=== PATIENT | female | born 1995 | race Caucasian/White ===

== ENCOUNTER → 2020-09-08 09:23 | Outpatient (CLI) | payer OTHER, SELFPAY ==
--- NOTE | 2020-09-08 | DI.MRI.S_ITS ---
PROCEDURE: MR ANKLE RT WO CON INDICATIONS: Pain in right foot TECHNIQUE: Noncontrast sagittal T1 spin echo and T2 fast spin echo with fat saturation, axial proton density fast spin echo and T2 fast spin echo with fat saturation, coronal T1 spin echo and T2 fast spin echo with fat saturation through the ankle/hindfoot. COMPARISON: [facility], CR, XR FOOT 3 VIEWS WEIGHT BEARING BILATERAL, 09/02/2020, 13:46. FINDINGS: Image quality: Excellent. Bones and joints: Os navicularis is seen with marrow edema and pseudoarthrosis involving articulation between os navicularis and medial periphery of navicular bone. No other area of abnormal marrow signal. No fracture or dislocation. No hindfoot coalitions. No osteochondral injuries of the talar dome. No pathologic joint effusions. Medial structures: The posterior tibialis is mildly thickened at the level of os navicularis. The flexor digitorum longus, and flexor hallucis longus tendons are intact. Small to moderate amount of fluid is seen distending flexor tendon sheath most prominent in flexor hallucis longus tendon suggestive of tenosynovitis. The posterior tibial neurovascular bundle appears normal within the tarsal tunnel, without extrinsic mass effect. The deep layer (anterior and posterior tibiotalar ligaments) and superficial layer (tibionavicular, tibiospring, and tibiocalcaneal ligaments) of the deltoid ligament appear normal. The spring ligament components (superomedial calcaneonavicular, medioplantar oblique calcaneonavicular, and inferoplantar longitudinal ligaments) are intact. Lateral structures: The anterior talofibular, calcaneofibular, and posterior talofibular ligaments appear intact. More superiorly, the anterior and posterior tibiofibular ligaments appear intact, as is the intermalleolar ligament. The tibiofibular syndesmosis is normal in width at 2 mm or less. The peroneus longus and brevis tendons demonstrate normal location and morphology. Adjacent bony peroneal tubercle and retrotrochlear prominence are normal in size. The sinus tarsi demonstrates normal fatty signal, without edema, fibrosis, or cyst formation. Visualized sinus tarsi components (cervical ligament, interosseous talocalcaneal ligament, roots of the inferior extensor retinaculum) appear normal. The calcaneonavicular and calcaneocuboid components of the bifurcate ligament appear intact. The dorsal calcaneocuboid ligament appears intact. Anterior structures: The tibialis anterior, extensor hallucis longus, and extensor digitorum longus tendons appear intact. The dorsal talonavicular ligament appears intact. Posterior and plantar structures: Achilles tendon is intact. Medial and lateral bands of the plantar fascia are of normal thickness. No abductor digiti quinti muscle atrophy to suggest Hernandez neuropathy. IMPRESSION: 1. Prominent size os navicularis with pseudoarthrosis with adjacent medial aspect of navicular bone and marrow edema within the os navicularis and medial periphery of navicular. No fracture or dislocation. No other area of abnormal marrow signal. 2. Mild tendinosis involving posterior tibialis tendon at the level of os navicularis. Low-grade flexor tendon tenosynovitis. 3. Rest of the ankle tendons and ligaments are intact. Dictated by: Bart Ferraro M.D. on 09/08/2020 at 11:14 Approved by: Bart Ferraro M.D. on 09/08/2020 at 11:39
== END ==
PROVIDERS: Referring Provider Podiatrist; Visit Provider Podiatrist
DX: M79.671 Pain in right foot (principal); M65.871 Other synovitis and tenosynovitis, right ankle and foot
CPT/HCPCS: 73721

== ENCOUNTER 2022-10-17 20:15 | Emergency (ER) | payer OTHER, SELFPAY ==
[2022-10-17 20:40] VITALS: BP 123/88; PULSE 71; RESP 18; TEMP 36.8; O2SAT 100; BMI 30.9
--- NOTE | 2022-10-17 20:46 | DI.RAD.S_ITS ---
PROCEDURE: XR CHEST 1V INDICATIONS: chest pain TECHNIQUE: One view of the chest was acquired. COMPARISON: None. FINDINGS: Surgical changes and devices: None. Lungs and pleura: Lungs are clear. No pleural effusions or pneumothorax. Mediastinum: Mediastinal contours appear normal. Heart size is normal. Bones and chest wall: No suspicious bony lesions. Overlying soft tissues appear unremarkable. IMPRESSION: 1. No acute cardiopulmonary disease. Dictated by: Lisandro Caicedo M.D. on 10/17/2022 at 21:54 Approved by: Lisandro Caicedo M.D. on 10/17/2022 at 21:54
[2022-10-17 21:27] LABS: Add Manual Diff / Slide Review NO; Basophils Absolute Auto 100 /uL (0-100); Basophils Percent Auto 0.4 % (0-2); Eosinophils Absolute Auto 100 /uL (0-450); Eosinophils Percent Auto 0.5 % (2-4); Hematocrit 42.6 % (36-46); Hemoglobin 14.2 g/dL (12.0-16.0); Lymphocytes Absolute Auto 3400 /uL (1100-4500); Lymphocytes Percent Auto 25.2 % (25-40); Mean Corpuscular HGB Conc 33.4 % (30-36); Mean Corpuscular Hemoglobin 31.1 PG (26-34); Monocytes Absolute Auto 1000 /uL (0-900); Monocytes Percent Auto 7.2 % (3-14); Neutrophils Absolute Auto 8900 /uL (1500-7000); Neutrophils Percent Auto 66.7 % (50-75); PTT Partial Thromboplastin Tim 26 SECONDS (26-36); Platelet Count 264 X10^3/uL (150-400); Red Blood Cell Count 4.58 X10^6/uL (4.0-5.2); Red Cell Distribution Width 12.9 % (11.6-14.8); White Blood Cell Count 13.3 X10^3/uL (4.5-11.0)
[2022-10-17 21:34] LABS: Alanine Aminotransferase 16 IU/L (<35); Albumin 4.3 g/dL (3.5-5.0); Albumin Globulin Ratio 1.3 (1.0-2.8); Alkaline Phosphatase 43 U/L (38-126); Aspartate Aminotransferase 23 IU/L (14-36); BUN Creatinine Ratio 33.8 (6-22); Bilirubin Total 0.6 mg/dL (0.2-1.3); Blood Urea Nitrogen 23 mg/dL (7-17); Calcium 8.9 mg/dL (8.4-10.2); Carbon Dioxide 24 mmol/L (22-32); Chloride 103 mmol/L (98-107); Creatine Kinase 95 U/L (30-135); Estimated Glomerular Filt Rate > 60 mL/min (>60); Globulin 3.4 g/dL (1.7-4.1); Glucose 83 mg/dL (70-100); HEMOLYSIS 31 (0-50); Lipase 83 U/L (23-300); Magnesium 1.9 mg/dL (1.6-2.3); Sodium 136 mmol/L (137-145); Total Protein 7.7 g/dL (6.3-8.2)
[2022-10-17 21:45] LABS: Troponin I < 0.012 ng/mL (0.01-0.034)
[2022-10-17 22:27] LABS: COVID19 -Nasal RAPID Negative (Negative)
[2022-10-17 22:44] VITALS: BP 117/57; PULSE 67; O2SAT 100
[2022-10-17 23:00] VITALS: PULSE 64; O2SAT 100
[2022-10-17 23:01] VITALS: BP 108/54; PULSE 66; O2SAT 100
--- NOTE | 2022-10-17 23:11 | ED.CHESTPAIN ---
HPI - Chest Pain General Chief Complaint: Chest Pain Stated Complaint: chest pain Time Seen by Provider: 10/17/22 22:54 Source: patient Mode of arrival: Ambulatory Limitations: no limitations History of Present Illness HPI narrative: Patient is a 27-year-old otherwise healthy female who is here for evaluation of occasional episodes of retrosternal sharp chest pain that has been going on for the past couple days. She states when it comes on it lasts for short period of time resolves over this happening multiple times a day. No shortness of breath. Not worse with palpation or movement. No abdominal pain. No nausea or vomiting. Has not tried anything for the symptoms prior to arrival. Related Data Allergies Allergy/AdvReac Type Severity Reaction Status Date / Time No Known Drug Allergies Allergy Verified 10/17/22 20:40 Review of Systems Constitutional Constitutional: Reports system reviewed and no additional complaints, except as documented Cardiovascular Cardiovascular: Reports system reviewed and no additional complaints, except as documented Respiratory Respiratory: Reports system reviewed and no additional complaints, except as documented Gastrointestinal Gastrointestinal: Reports system reviewed and no additional complaints, except as documented Musculoskeletal Musculoskeletal: Reports system reviewed and no additional complaints, except as documented Hematologic/Lymphatic On Anticoagulants: No Patient History Social History Smoking Status: Former smoker Smoking Status: Former smoker alcohol intake frequency: a few times a month Substance Use Type: does not use Exam Initial Vital Signs Initial Vital Signs: Vital Signs Temperature 98.3 F 10/17/22 20:40 Pulse Rate 71 10/17/22 20:40 Respiratory Rate 18 10/17/22 20:40 Blood Pressure 123/88 10/17/22 20:40 Pulse Oximetry 100 10/17/22 20:40 Oxygen Delivery Method Room Air 10/17/22 20:40 HENMT Head: normal to inspection and normocephalic Chest Chest: No crepitus and No tenderness Resp Effort & Inspection: normal respiratory effort Auscultation: clear to auscultation bilaterally Cardio Rate: regular rate Rhythm: regular rhythm GI Inspection: normal to inspection Neuro General: patient alert, patient awake and moves all extremities Scores HEART Score Heart Score history: Slightly Suspicious Heart Score EKG: Normal Heart Score Age: < 45 years old Heart Score risk factors: No known risk factors Heart Score troponin: < or = to normal limit Heart Score Total: 0 Course Orders Ordered: ED Orders 10/17/22 20:46 XR chest 1V Stat EKG-12 Lead Stat 10/17/22 20:48 COVID19 -Nasal RAPID Stat 10/17/22 21:10 Complete Blood Count AUTO DIFF Stat Comprehensive Metabolic Panel Stat Lipase Stat Magnesium Stat PTT Partial Thromboplastin Osmani Stat Prothrombin Time INR Stat Troponin & CK Cardiac Panel Stat Vital Signs Vital signs: Vital Signs - 8 hr 10/17/22 20:40 10/17/22 22:44 10/17/22 22:44 Temperature 98.3 F Pulse Rate 71 67 Respiratory Rate 18 Blood Pressure 123/88 117/57 L Pulse Oximetry 100 100 Oxygen Delivery Method Room Air 10/17/22 23:00 10/17/22 23:01 10/17/22 23:01 Temperature Pulse Rate 64 66 Respiratory Rate Blood Pressure 108/54 L Pulse Oximetry 100 100 Oxygen Delivery Method 10/17/22 23:16 10/17/22 23:16 Temperature Pulse Rate Respiratory Rate Blood Pressure 109/55 L Pulse Oximetry 83 L Oxygen Delivery Method MDM - Chest Pain Lab Data Attestation: I reviewed the patient's lab results. 10/17/22 21:10 10/17/22 21:10 Labs: Lab Results 10/17/22 10/17/22 10/17/22 Range/Units 20:48 21:10 21:10 WBC 13.3 H (4.5-11.0) X10^3/uL RBC 4.58 (4.0-5.2) X10^6/uL Hgb 14.2 (12.0-16.0) g/dL Hct 42.6 (36-46) % MCV 93.0 (80-100) fL MCH 31.1 (26-34) PG MCHC 33.4 (30-36) % RDW 12.9 (11.6-14.8) % Plt Count 264 (150-400) X10^3/uL Neut % (Auto) 66.7 (50-75) % Lymph % (Auto) 25.2 (25-40) % Centre % (Auto) 7.2 (3-14) % Eos % (Auto) 0.5 L (2-4) % Baso % (Auto) 0.4 (0-2) % Neut # (Auto) 8900 H (1089-1047) /uL Lymph # (Auto) 3400 (0855-0547) /uL Centre # (Auto) 1000 H (0-900) /uL Eos # (Auto) 100 (0-450) /uL Baso # (Auto) 100 (0-100) /uL PT 12.0 (10.1-12.7) SECONDS INR 1.0 (0.9-1.3) APTT 26 (26-36) SECONDS Sodium (137-145) mmol/L Potassium (3.4-5.1) mmol/L Chloride (98-107) mmol/L Carbon Dioxide (22-32) mmol/L BUN (7-17) mg/dL Creatinine (0.52-1.04) mg/dL Estimated GFR (>60) mL/min BUN/Creatinine Ratio (6-22) Glucose (70-100) mg/dL Calcium (8.4-10.2) mg/dL Magnesium (1.6-2.3) mg/dL Total Bilirubin (0.2-1.3) mg/dL AST (14-36) IU/L ALT (<35) IU/L Alkaline Phosphatase (38-126) U/L Total Creatine Kinase (30-135) U/L CK-MB (CK-2) CK-MB (CK-2) Rel Index Troponin I (0.01-0.034) ng/mL Total Protein (6.3-8.2) g/dL Albumin (3.5-5.0) g/dL Globulin (1.7-4.1) g/dL Albumin/Globulin Ratio (1.0-2.8) Lipase (23-300) U/L SARS-CoV-2 (PCR) Negative (Negative) 10/17/22 Range/Units 21:10 WBC (4.5-11.0) X10^3/uL RBC (4.0-5.2) X10^6/uL Hgb (12.0-16.0) g/dL Hct (36-46) % MCV (80-100) fL MCH (26-34) PG MCHC (30-36) % RDW (11.6-14.8) % Plt Count (150-400) X10^3/uL Neut % (Auto) (50-75) % Lymph % (Auto) (25-40) % Centre % (Auto) (3-14) % Eos % (Auto) (2-4) % Baso % (Auto) (0-2) % Neut # (Auto) (2832-5888) /uL Lymph # (Auto) (4967-4817) /uL Centre # (Auto) (0-900) /uL Eos # (Auto) (0-450) /uL Baso # (Auto) (0-100) /uL PT (10.1-12.7) SECONDS INR (0.9-1.3) APTT (26-36) SECONDS Sodium 136 L (137-145) mmol/L Potassium 4.0 (3.4-5.1) mmol/L Chloride 103 (98-107) mmol/L Carbon Dioxide 24 (22-32) mmol/L BUN 23 H (7-17) mg/dL Creatinine 0.68 (0.52-1.04) mg/dL Estimated GFR > 60 (>60) mL/min BUN/Creatinine Ratio 33.8 H (6-22) Glucose 83 (70-100) mg/dL Calcium 8.9 (8.4-10.2) mg/dL Magnesium 1.9 (1.6-2.3) mg/dL Total Bilirubin 0.6 (0.2-1.3) mg/dL AST 23 (14-36) IU/L ALT 16 (<35) IU/L Alkaline Phosphatase 43 (38-126) U/L Total Creatine Kinase 95 (30-135) U/L CK-MB (CK-2) TNP CK-MB (CK-2) Rel Index TNP Troponin I < 0.012 (0.01-0.034) ng/mL Total Protein 7.7 (6.3-8.2) g/dL Albumin 4.3 (3.5-5.0) g/dL Globulin 3.4 (1.7-4.1) g/dL Albumin/Globulin Ratio 1.3 (1.0-2.8) Lipase 83 (23-300) U/L SARS-CoV-2 (PCR) (Negative) Imaging Data Chest x-ray: Radiologist's Impression: PROCEDURE:? XR CHEST 1V ? INDICATIONS:? chest pain ? TECHNIQUE:? One view of the chest was acquired.? ? COMPARISON:? None. ? FINDINGS:? ? Surgical changes and devices:? None.? ? Lungs and pleura:? Lungs are clear.? No pleural effusions or pneumothorax.? ? Mediastinum:? Mediastinal contours appear normal.? Heart size is normal.? ? Bones and chest wall:? No suspicious bony lesions.? Overlying soft tissues appear unremarkable.? ? IMPRESSION:? ? 1.? No acute cardiopulmonary disease. ECG Data Attestation: I personally reviewed and interpreted this ECG as follows: Interpretation: Sinus rhythm Ventricular rate is 67 Normal axis Normal QRS Normal QTC No ST T wave changes MDM Narrative Medical decision making narrative: Low risk heart score. Chest x-ray is normal. EKG is unremarkable. Low suspicion for ACS. Low suspicion for PE. Chest x-ray shows no indication of pneumonia. I did discuss all this with the patient. No further workup required in the emergency department. She will contact her primary doctor for follow-up. She was given return precautions. She expressed understanding and agreement. Discharge Plan Departure Patient Disposition: Home Clinical Impression: Atypical chest pain Instructions: DI for Atypical Chest Pain Activity Restrictions/Additional Instructions: I recommend that you consider taking a reflux medicines such as famotidine/Pepcid. You can purchase this [id number]. It is a 1 time a day medication. Also recommend you contact your primary doctor for a follow-up. Return to the emergency department for any new symptoms. Stand Alone Forms: Patient Portal/API
[2022-10-17 23:16] VITALS: BP 109/55; O2SAT 83
== END 2022-10-17 23:23 | disposition home or self-care (01) ==
PROVIDERS: Emergency Provider Emergency Medicine
DX: R07.89 Other chest pain (principal); R79.89 Other specified abnormal findings of blood chemistry; Z20.822 Contact with and (suspected) exposure to COVID-19
CPT/HCPCS: 36415; 71045; 80053; 82550; 83690; 83735; 84484; 85025; 85610; 85730; 87635; 93005; 99283; 99284; C9803